=== PATIENT | male | born 1935 | race Caucasian/White ===

== ENCOUNTER → 2017-10-17 14:42 | Outpatient (CLI) | payer MEDICARE, OTHER, SELFPAY ==
--- NOTE | 2017-10-17 | DI.US.S_ITS ---
PROCEDURE: US ARTERIAL DUPLEX LE BI INDICATIONS: Peripheral vascular disease, unspecified TECHNIQUE: Color and pulse Doppler interrogation was performed of both lower extremity arterial systems, with image documentation. COMPARISON: None. FINDINGS: Right lower extremity: Common femoral artery: 102 cm/sec, with triphasic flow. Deep femoral artery: 62 cm/sec, with triphasic flow. Proximal superficial femoral artery: 85 cm/sec, with triphasic flow. Mid superficial femoral artery: 78 cm/sec, with triphasic flow. Distal superficial femoral artery: 82 cm/sec, with triphasic flow. Popliteal artery: 57 cm/sec, with triphasic flow. Posterior tibial artery: No flow Anterior tibial artery/dorsalis pedis: No flow Abraham-scale imaging description: Heavy plaque throughout Left lower extremity: Common femoral artery: 112 cm/sec, with triphasic flow. Deep femoral artery: 60 cm/sec, with biphasic flow. Proximal superficial femoral artery: 94 cm/sec, with triphasic flow. Mid superficial femoral artery: 99 cm/sec, with triphasic flow. Distal superficial femoral artery: 77 cm/sec, with triphasic flow. Popliteal artery: 57 cm/sec, with triphasic flow. Posterior tibial artery: 38 cm/sec, with monophasic flow. Anterior tibial artery/dorsalis pedis: 63 cm/sec, with monophasic flow. 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 Dictated by: Irvin Gardner M.D. on 10/17/2017 at 15:53 Approved by: Irvin Gardner M.D. on 10/17/2017 at 15:57
== END ==
PROVIDERS: PCP Family Medicine Geriatric Medicine; Visit Provider Family Medicine Geriatric Medicine
DX: I73.9 Peripheral vascular disease, unspecified (principal)
CPT/HCPCS: 93925